=== PATIENT | male | born 1985 | race Hispanic/Latino ===

== ENCOUNTER 2019-03-17 19:00 | Emergency (ER) | payer SELFPAY ==
[2019-03-17] MEDS ORDERED: Adacel (T-DAP) 0.5 ML SYRINGE ONE (19:43)
[2019-03-17] MEDS ORDERED: HYDROcodone/Acetaminophen 5/325 mg Tablet ONE (19:58)
== END 2019-03-17 20:45 | disposition home or self-care (01) ==
LOC: ERS 19:00
DX: S61.252A Open bite of right middle finger without damage to nail, initial encounter (principal); W53.11XA Bitten by rat, initial encounter
CPT/HCPCS: 12001; 90471; 90715